=== PATIENT | female | born 1970 | race Caucasian/White ===

== ENCOUNTER 2019-07-09 12:38 | Emergency (ER) | payer OTHER ==
[~2019-07-09] VITALS: Ht 175.3 cm; Wt 65.0 kg
[2019-07-09 12:49] VITALS: BP 132/77
[2019-07-09] MEDS ORDERED: fentaNYL PF VIAL 100 MCG/2 ML VIAL IVP ONE (13:15)
[2019-07-09] MEDS ORDERED: FAMOTIDINE 20 MG/2 ML VIAL IVP ONE (13:15)
[2019-07-09] MEDS ORDERED: ONDANSETRON PF 4 MG/2 ML VIAL. IVP ONE (13:15)
[2019-07-09] MEDS ORDERED: IV NORMAL SALINE 1000ML BAG 1,000 ML IV ONE (13:15)
[2019-07-09 13:19] LABS: BILIRUBIN,URINE NEGATIVE (NEG); CLARITY,URINE CLEAR; COLOR,URINE YELLOW; NITRITE,URINE NEGATIVE (NEG); PH,URINE 6.5 (<5.0-8.0); PROTEIN,URINE NEGATIVE (NEG-TRACE); UROBILINOGEN,URINE 0.2 mg/dL (0.2 mg/dL)
--- NOTE | 2019-07-09 13:21 | PHYS DOC ---
Past Medical History Past Medical History: Hypertension Additional Past Surgical Histo: abd ex lap Smoking Status: Current Every Day Smoker Additional Information: reports vaping Alcohol Use: Heavy General Adult EDM: Chief Complaint: ABDOMINAL PAIN HPI: HPI: Patient is a 49 year old female with history of hypertension who presents to the ED today complaining of 7 out of 10 level like epigastric abdominal pain nonradiating in nature that began at 4 AM this morning. Patient states the pain woke her up. Denies any nausea, vomiting, diarrhea. Denies any exacerbating or relieving factors to her pain. She reports she had vaginal bleeding that was heavy last week that stopped. She states today she was having a transvaginal ultrasound when she realized her epigastric pain is worse and checked into the ED to be evaluated. Review of Systems: Review of Systems: Constitutional: Denies fever or chills. [] Eyes: Denies change in visual acuity. [] HENT: Denies nasal congestion or sore throat. [] Respiratory: Denies cough or shortness of breath. [] Cardiovascular: Denies chest pain or edema. [] GI: Reports epigastric abdominal pain, denies nausea, vomiting, bloody stools or diarrhea. [] : Denies dysuria. [] Musculoskeletal: Denies back pain or joint pain. [] Integument: Denies rash. [] Neurologic: Denies headache, focal weakness or sensory changes. [] Psychiatric: Denies depression or anxiety. [] Heart Score: Risk Factors: Risk Factors: DM, Current or recent (<one month) smoker, HTN, HLP, family history of CAD, obesity. Risk Scores: Score 0 - 3: 2.5% MACE over next 6 weeks - Discharge Home Score 4 - 6: 20.3% MACE over next 6 weeks - Admit for Clinical Observation Score 7 - 10: 72.7% MACE over next 6 weeks - Early Invasive Strategies Current Medications: Current Medications Medications (Trade) Dose Ordered Sig/Swati Start Time Stop Time Status Last Admin Dose Admin Famotidine (Pepcid Vial) 20 mg 1X ONCE 20 13:15 520 13:16 DC Fentanyl Citrate (Fentanyl 2ml Vial) 50 mcg 1X ONCE 20 13:15 20 13:16 DC Ondansetron HCl (Zofran) 4 mg 1X ONCE 5/20/20 13:15 5/20/20 13:16 DC Sodium Chloride 1,000 ml @ 1,000 mls/hr 1X ONCE 07/09/19 13:15 07/09/19 14:14 Allergies: Allergies: Allergies Coded Allergies Type Severity Reaction Last Updated Verified No Known Drug Allergies 07/09/19 No Physical Exam: PE: Constitutional: Well developed, well nourished, no acute distress, non-toxic appearance. [] HENT: Normocephalic, atraumatic, bilateral external ears normal, oropharynx moist, no oral exudates, nose normal. [] Eyes: PERRLA, EOMI, conjunctiva normal, no discharge. [] Neck: Normal range of motion, no tenderness, supple, no stridor. [] Cardiovascular:Heart rate regular rhythm, no murmur [] Lungs & Thorax: Bilateral breath sounds clear to auscultation [] Abdomen: Bowel sounds normal, soft, slight tenderness to the epigastric region, no right upper quadrant or right lower quadrant tenderness, no masses, no pulsatile masses. [] Skin: Warm, dry, no erythema, no rash. [] Back: No tenderness, no CVA tenderness. [] Extremities: No tenderness, no cyanosis, no clubbing, ROM intact, no edema. [] Neurologic: Alert and oriented X 3, normal motor function, normal sensory function, no focal deficits noted. [] Psychologic: Affect normal, judgement normal, mood normal. [] Current Patient Data: Labs: Laboratory Tests Test 07/09/19 13:05 POC Urine HCG, Qualitative Hcg negative (Negative) Vital Signs: Vital Signs Date Time Temp Pulse Resp B/P (MAP) Pulse Ox O2 Delivery O2 Flow Rate FiO2 07/09/19 12:49 98.4 85 132/77 (95) 98 Room Air 98.4 EKG: EKG: [] Radiology/Procedures: Radiology/Procedures: [] Course & Med Decision Making: Course & Med Decision Making Pertinent Labs and Imaging studies reviewed. (See chart for details) This is a 49-year-old female patient presenting to the ED today with epigastric abdominal pain that began at 4 AM this morning. Nursing staff informs me patient decided to leave AMA because she has issues with the who is in the car. She informed the nurses she will come back later. She is A&O X4 and able to make her own decisions. She understands the risk of leaving AMA including . James Disclaimer: James Disclaimer: This electronic medical record was generated, in whole or in part, using a voice recognition dictation system. Departure Departure Impression: Primary Impression: Epigastric abdominal pain Disposition: 07 AGAINST MEDICAL ADVICE Condition: STABLE Referrals: UNKNOWN PCP NAME (PCP) ALEXANDR DUBOSE APRN July 09, 2019 13:21
[2019-07-09 13:22] LABS: BARBITURATES NEG (NEG); BENZODIAZEPINES NEG (NEG); CANNABINOIDS NEG (NEG); COCAINE NEG (NEG); METHADONE NEG (NEG); OPIATES NEG (NEG); PHENCYCLIDINE NEG (NEG)
[2019-07-09 13:23] LABS: AMPHETAMINE/METHAMPHETAMINE NEG (NEG)
[2019-07-09 13:25] LABS: SQUAMOUS EPITHELIAL CELL,UR MANY /LPF
[2019-07-09 13:26] LABS: BACTERIA,URINE MOD /HPF (0-FEW)
[2019-07-09 14:13] LABS: BASO # 0.1 x10^3/uL (0.0-0.2); BASO % 1 % (0-3); EOS # 0.1 x10^3/uL (0.0-0.7); EOS % 2 % (0-3); HEMATOCRIT 36.9 % (36.0-47.0); HEMOGLOBIN 12.8 g/dL (12.0-15.5); LYMPH # 1.6 x10^3/uL (1.0-4.8); LYMPH % 26 % (24-48); MEAN CORPUSCULAR HEMOGLOBIN 32 pg (25-35); MEAN CORPUSCULAR HGB CONC 35 g/dL (31-37); MEAN CORPUSCULAR VOLUME 93 fL (79-100); MONO # 0.4 x10^3/uL (0.0-1.1); MONO % 6 % (0-9); NEUT # 3.8 x10^3/uL (1.8-7.7); NEUT % 64 % (31-73); PLATELET COUNT 293 x10^3/uL (140-400); RED BLOOD COUNT 3.97 x10^6/uL (3.50-5.40); RED CELL DISTRIBUTION WIDTH 12.8 % (11.5-14.5)
[2019-07-09 14:22] LABS: CALCIUM 8.5 mg/dL (8.5-10.1); CREATININE 0.8 mg/dL (0.6-1.0); GFR 76.2; POTASSIUM 3.7 mmol/L (3.5-5.1)
[2019-07-09 14:28] LABS: ALBUMIN/GLOBULIN RATIO 1.3 (1.0-1.7); TOTAL BILIRUBIN 0.6 mg/dL (0.2-1.0)
== END 2019-07-09 13:32 | disposition left against medical advice (07) ==
LOC: ER 12:38
DX: R10.13 Epigastric pain (principal); N93.9 Abnormal uterine and vaginal bleeding, unspecified; I10 Essential (primary) hypertension; F17.200 Nicotine dependence, unspecified, uncomplicated; F10.10 Alcohol abuse, uncomplicated; Z98.890 Other specified postprocedural states
CPT/HCPCS: 36415; 80053; 80307; 81001; 81025; 83690; 85025; 99283; G0480

== ENCOUNTER 2019-07-09 13:35 | Emergency (ER) | payer OTHER ==
[~2019-07-09] VITALS: Ht 175.3 cm; Wt 65.9 kg
--- NOTE | 2019-07-09 14:19 | PHYS DOC ---
Past Medical History Past Medical History: Hypertension Additional Past Surgical Histo: abd ex lap Smoking Status: Current Every Day Smoker Alcohol Use: Heavy General Adult EDM: Chief Complaint: ABDOMINAL PAIN HPI: HPI: Patient had left the ED AMA and returned a few minutes later Patient is a 49 year old female with history of hypertension who presents to the ED today complaining of 7 out of 10 level like epigastric abdominal pain nonradiating in nature that began at 4 AM this morning. Patient states the pain woke her up. Denies any nausea, vomiting, diarrhea. Denies any exacerbating or relieving factors to her pain. She reports she had vaginal bleeding that was heavy last week that stopped. She states today she was having a transvaginal ultrasound when she realized her epigastric pain is worse and checked into the ED to be evaluated. Review of Systems: Review of Systems: Constitutional: Denies fever or chills. [] Eyes: Denies change in visual acuity. [] HENT: Denies nasal congestion or sore throat. [] Respiratory: Denies cough or shortness of breath. [] Cardiovascular: Denies chest pain or edema. [] GI: Reports epigastric abdominal pain, denies nausea, vomiting, bloody stools or diarrhea. [] : Denies dysuria. [] Musculoskeletal: Denies back pain or joint pain. [] Integument: Denies rash. [] Neurologic: Denies headache, focal weakness or sensory changes. [] Endocrine: Denies polyuria or polydipsia. [] Lymphatic: Denies swollen glands. [] Psychiatric: Denies depression or anxiety. [] Heart Score: Risk Factors: Risk Factors: DM, Current or recent (<one month) smoker, HTN, HLP, family history of CAD, obesity. Risk Scores: Score 0 - 3: 2.5% MACE over next 6 weeks - Discharge Home Score 4 - 6: 20.3% MACE over next 6 weeks - Admit for Clinical Observation Score 7 - 10: 72.7% MACE over next 6 weeks - Early Invasive Strategies Allergies: Allergies: Allergies Coded Allergies Type Severity Reaction Last Updated Verified No Known Drug Allergies 07/09/19 No Physical Exam: PE: Constitutional: Well developed, well nourished, no acute distress, non-toxic appearance. [] HENT: Normocephalic, atraumatic, bilateral external ears normal, oropharynx moist, no oral exudates, nose normal. [] Eyes: PERRLA, EOMI, conjunctiva normal, no discharge. [] Neck: Normal range of motion, no tenderness, supple, no stridor. [] Cardiovascular:Heart rate regular rhythm, no murmur [] Lungs & Thorax: Bilateral breath sounds clear to auscultation [] Abdomen: Bowel sounds normal, soft, epigastric tenderness on exam, no right upper quadrant or right lower quadrant tenderness, no masses, no pulsatile masses. [] Skin: Warm, dry, no erythema, no rash. [] Back: No tenderness, no CVA tenderness. [] Extremities: No tenderness, no cyanosis, no clubbing, ROM intact, no edema. [] Neurologic: Alert and oriented X 3, normal motor function, normal sensory function, no focal deficits noted. [] Psychologic: Affect normal, judgement normal, mood normal. [] Current Patient Data: Vital Signs: Vital Signs Date Time Temp Pulse Resp B/P (MAP) Pulse Ox O2 Delivery O2 Flow Rate FiO2 07/09/19 13:55 98.1 78 20 128/88 (101) 100 Room Air 98.1 EKG: EKG: [] Radiology/Procedures: Radiology/Procedures: []PROCEDURE: CT ABD PELV W/ IV CONTRST ONLY Study: CT abdomen/pelvis with intravenous contrast Indication: Upper abdominal pain. Comparison: None. Technique: Helical CT imaging performed of the abdomen and pelvis after the intravenous administration of 75 cc Omnipaque 300 contrast. Sagittal and coronal reformats were obtained. One or more of the following individualized dose reduction techniques were utilized for this examination: 1. Automated exposure control 2. Adjustment of the mA and/or kV according to patient size 3. Use of iterative reconstruction technique. Findings: Chest: Partially imaged mineralization involving a left breast implant. Unremarkable partially imaged right breast implant. Right lower lobe nodules measuring 4.5 and 3.5 mm and a left lower lobe nodule measuring 3 mm. Liver: Unremarkable. Gallbladder/Biliary Tree: Unremarkable. Pancreas: Unremarkable. Spleen: Within normal limits for size. Adrenal Glands: Unremarkable. Kidneys/Ureters/Bladder: Right renal cyst measuring up to 1 cm. No follow-up imaging is needed per consensus recommendation based on imaging criteria. Reproductive Organs: Within normal limits. Colon: A unremarkable. Appendix: Normal. Small Bowel: No small bowel obstruction Stomach: Unremarkable. Vasculature: Scattered calcific atherosclerosis. Nonaneurysmal aorta. Patent portal veins and superior mesenteric vein. Lymph Nodes: Within normal limits. Peritoneum and Body Wall: Possible trace amount of free pelvic fluid. Bones: Benign-appearing focus of sclerosis within the posterior right iliac bone, image 52 series 2. L4 limbus vertebra. Miscellaneous: None. Impression: 1. No acute abnormality seen throughout the abdomen or pelvis to account for the patient's symptoms. 2. Small pulmonary nodules at both lower lobes which do not meet size criteria for dedicated follow-up however if there are risk factors for lung malignancy optional CT in 12 months could be performed. 3. There may be a trace amount of free fluid within the pelvis though given presumed premenopausal state this is favored physiologic. The overall appearance of the reproductive organs is within normal limits for patient age. Electronically signed by: FRANCESCO WILLS MD (07/09/2019 3:00 PM) [id number] DICTATED and SIGNED BY: FRANCESCO WILLS MD DATE: 07/09/191499 Course & Med Decision Making: Course & Med Decision Making Pertinent Labs and Imaging studies reviewed. (See chart for details) This is a 49-year-old female patient presenting to the ED today complaining of epigastric abdominal pain since this morning. Patient was seen in the ED a couple minutes ago, she signed out AGAINST MEDICAL ADVICE due to issues with her left before her work up was complete. She returned back a couple minutes later and checked back in the Ed. Labs are negative, Ct scan is negative. Noted for incidental finding on pulmonary nodules, reports history of smoking. Currently not a smoker. Recommended following up with the primary care doctor. Provided GI for follow-up. Discharge to home. James Disclaimer: James Disclaimer: This electronic medical record was generated, in whole or in part, using a voice recognition dictation system. Departure Departure Impression: Primary Impression: Epigastric abdominal pain Additional Impression: Pulmonary nodule Disposition: 01 HOME, SELF-CARE Condition: STABLE Referrals: UNKNOWN PCP NAME (PCP) RAMIREZ CORRAL MD follow up with your doctor or Dr. Corral in one week Patient Instructions: Abdominal Pain, Pulmonary Nodule, [id number] Additional Instructions: You were evaluated in the emergency room for abdominal pain, your ED work-up is negative for any acute findings, you noted to have pulmonary nodules, this needs to be followed up with your primary care doctor for repeat CAT scan in 1 year. ALEXANDR DUBOSE APRN July 09, 2019 14:19
[2019-07-09] MEDS ORDERED: IV NORMAL SALINE 1000ML BAG 1,000 ML IV ONE (14:30)
[2019-07-09] MEDS ORDERED: IOHEXOL 300 MG/ML 100ML VIAL. IV ONE (14:30)
[2019-07-09] MEDS ORDERED: fentaNYL PF VIAL 100 MCG/2 ML VIAL IVP ONE (14:30)
[2019-07-09] MEDS ORDERED: ONDANSETRON PF 4 MG/2 ML VIAL. IVP ONE (14:30)
[2019-07-09] MEDS ORDERED: CONTRAST GIVEN. MC PRN (14:45)
--- NOTE | 2019-07-09 15:04 | RAD ---
Study: CT abdomen/pelvis with intravenous contrast Indication: Upper abdominal pain. Comparison: None. Technique: Helical CT imaging performed of the abdomen and pelvis after the intravenous administration of 75 cc Omnipaque 300 contrast. Sagittal and coronal reformats were obtained. One or more of the following individualized dose reduction techniques were utilized for this examination: 1. Automated exposure control 2. Adjustment of the mA and/or kV according to patient size 3. Use of iterative reconstruction technique. Findings: Chest: Partially imaged mineralization involving a left breast implant. Unremarkable partially imaged right breast implant. Right lower lobe nodules measuring 4.5 and 3.5 mm and a left lower lobe nodule measuring 3 mm. Liver: Unremarkable. Gallbladder/Biliary Tree: Unremarkable. Pancreas: Unremarkable. Spleen: Within normal limits for size. Adrenal Glands: Unremarkable. Kidneys/Ureters/Bladder: Right renal cyst measuring up to 1 cm. No follow-up imaging is needed per consensus recommendation based on imaging criteria. Reproductive Organs: Within normal limits. Colon: A unremarkable. Appendix: Normal. Small Bowel: No small bowel obstruction Stomach: Unremarkable. Vasculature: Scattered calcific atherosclerosis. Nonaneurysmal aorta. Patent portal veins and superior mesenteric vein. Lymph Nodes: Within normal limits. Peritoneum and Body Wall: Possible trace amount of free pelvic fluid. Bones: Benign-appearing focus of sclerosis within the posterior right iliac bone, image 52 series 2. L4 limbus vertebra. Miscellaneous: None. Impression: 1. No acute abnormality seen throughout the abdomen or pelvis to account for the patient's symptoms. 2. Small pulmonary nodules at both lower lobes which do not meet size criteria for dedicated follow-up however if there are risk factors for lung malignancy optional CT in 12 months could be performed. 3. There may be a trace amount of free fluid within the pelvis though given presumed premenopausal state this is favored physiologic. The overall appearance of the reproductive organs is within normal limits for patient age. Electronically signed by: FRANCESCO WILLS MD (07/09/2019 3:00 PM) [id number]
[2019-07-09 15:09] VITALS: BP 161/87
== END 2019-07-09 15:34 | disposition home or self-care (01) ==
LOC: ER 13:35
DX: R10.13 Epigastric pain (principal); R91.1 Solitary pulmonary nodule; I10 Essential (primary) hypertension; F17.200 Nicotine dependence, unspecified, uncomplicated; F10.10 Alcohol abuse, uncomplicated; Z98.890 Other specified postprocedural states
CPT/HCPCS: 74177; 96374; 96375; 99285; J2405; J3010; J7030; Q9967